=== PATIENT | female | born 1975 | race Caucasian/White ===

== ENCOUNTER 2018-12-11 02:08 | Emergency (ER) | payer OTHER ==
[~2018-12-11] VITALS: Ht 170.2 cm; Wt 116.1 kg
[2018-12-11 02:11] VITALS: BP 150/111; Ht 170.2 cm; Wt 116.1 kg
== END 2018-12-11 03:24 | disposition home or self-care (01) ==
LOC: ED 02:08
DX: J18.9 Pneumonia, unspecified organism (principal); J45.909 Unspecified asthma, uncomplicated; Z98.890 Other specified postprocedural states
CPT/HCPCS: J7620; Q0092